=== PATIENT | female | born 1995 | race American Indian/Alaskan Native ===

== ENCOUNTER 2018-07-17 15:58 | Emergency (ER) | payer OTHER ==
--- NOTE | 2018-07-17 16:19 | Emergency Department Report ---
Blank Doc - Documentation Documentation: 23 y/o female comes in for STD check. Reports that she has vaginal discharge for a week.
[2018-07-17 16:21] VITALS: BP 119/76
[2018-07-17 17:06] LABS: HCG Qualitative,Urine Negative (Negative)
[2018-07-17 17:12] LABS: Bilirubin,Urine NEG (Negative); Blood,Urine MOD (Negative); Calcium Oxalate Crystals,Urine 1+; Color,Urine Yellow (Yellow); Mucus,Urine 1+ /HPF; Protein,Urine <15 mg/dL mg/dL (Negative); Urobilinogen,Urine < 2.0 mg/dL (<2.0); WBC,Urine < 1.0 /HPF (0.0-6.0)
--- NOTE | 2018-07-17 17:43 | Emergency Department Report ---
Chief Complaint: Urogenital-Female Stated Complaint: STOMACH PAIN Time Seen by Provider: 07/17/18 17:07 - HPI History of Present Illness: This is a 23-year-old female who presents to ED stating she wanted test and specific screening stating that she was recently sexually active with partner. Patient denies any symptoms that mild clear vaginal discharge. She denies dysuria, vaginal bleed, pelvic pain, nausea vomiting or urinary symptoms. - ROS Review of Systems: Denies all other symptoms. As noted in HPI - Exam Vital Signs: Vital Signs 07/17/18 16:17 Temperature 98.6 F Pulse Rate 73 Respiratory 16 Rate Blood Pressure 119/76 O2 Sat by Pulse 100 Oximetry Physical Exam: GENERAL: Alert and oriented x3, no apparent distress, Normal Gait, atraumatic. HEAD: Head is normocephalic and a-traumatic. ABDOMEN: No organomegaly was noted,Positive bowel sounds, soft, and non- distended. . Nontender to palpation on all Quadrants, NO CVA tenderness. BACK: Full range of motion, no spinal tenderness, nontender to palpation. SKIN: Warm and dry, No lesions, No ulceration or induration present. MSE screening note: Focused history and physical exam performed. Due to findings the following was ordered: ED Medical Decision Making - Medical Decision Making This is a 23-year-old healthy looking female who presents to the ED wanting a test STD screening. test was obtained and negative. Urinalysis was obtained and normal. Discussed this findings with the patient. Discussed the patient to follow-up with outside medical clinic for STD screening. Vital signs are normal she is in no acute distress. ED Disposition for MSE Clinical Impression: test negative Disposition: DC-01 TO HOME OR SELFCARE Is pt being admited?: No Does the pt Need Aspirin: No Condition: Stable Instructions: Sexually Transmitted Diseases (ED), Safe Sex (ED) Additional Instructions: Make sure to follow up with the [facility] clinic for STD testing as discussed. Take all your medications as you've been prescribed. If you have any worsening symptoms or develop new symptoms please return to ED immediately. Referrals: COLLEEN CHRISTIE MD [Primary Care Provider] - 3-5 Days Forms: Accompanied Note, Work/School Release Form(ED) Time of Disposition: 17:43
[2018-07-17] MEDS ORDERED: FLAGYL ONE (18:12)
[2018-07-17] MEDS ORDERED: FLAGYL PO ONE (18:12)
== END 2018-07-17 18:23 | disposition home or self-care (01) ==
LOC: ED 15:58
DX: Z32.02 Encounter for pregnancy test, result negative (principal)
CPT/HCPCS: 81001; 81025; 99283